=== PATIENT | male | born 1955 | race American Indian/Alaskan Native ===

== ENCOUNTER 2018-02-17 15:00 | Emergency (ER) | payer OTHER ==
[2018-02-17 15:06] VITALS: BP 146/87; PULSE 68; RESP 20; TEMP 98.4; O2SAT 98
--- NOTE | 2018-02-17 16:57 | RAD ---
Date of service: 02/17/2018 PROCEDURE: Left Foot Radiographs. HISTORY: foot injury, pain to the 2nd and 3rd MTP and toes COMPARISON: None. FINDINGS: BONES: No acute fracture or destructive bony lesion identified. Numerous accessory ossicles are somewhat unusual but not rare associated with the 2nd through 5th metatarsophalangeal joints at 3rd plantar regions. JOINTS: Moderate hallux valgus deformity. Degenerative changes are moderate to severe at the 1st metatarsophalangeal joint enter moderate but diffuse throughout the midfoot and hindfoot joints. SOFT TISSUES: Normal. OTHER FINDINGS: None. IMPRESSION: No acute fracture, subluxation or dislocation left foot. Degenerative changes are identified as discussed above.
--- NOTE | 2018-02-17 17:00 | RAD ---
Date of service: 02/17/2018 PROCEDURE: Radiographs of the right tibia and fibula. HISTORY: injury pain, to the mid calf COMPARISON: None available TECHNIQUE: Frontal and lateral views obtained. FINDINGS: BONES: No acute fracture or destructive bony lesion identified. JOINT SPACES: Unremarkable. OTHER FINDINGS: None. IMPRESSION: Unremarkable radiographs of the right tibia and fibula. If symptoms persist or worsen follow-up CT or MRI is recommended.
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
== END 2018-02-17 17:29 | disposition home or self-care (01) ==
LOC: C.ER 15:00
DX: S90.32XA Contusion of left foot, initial encounter (principal); S80.11XA Contusion of right lower leg, initial encounter; V09.20XA Pedestrian injured in traffic accident involving unspecified motor vehicles, initial encounter

== ENCOUNTER 2018-06-14 10:03 | Emergency (ER) | payer BC ==
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
--- NOTE | 2018-06-14 12:26 | C.PDOC ---
History Of Present Illness 62 year old male presents to the ED for evaluation of throat discomfort. Patient states he felt like something was stuck in his throat after he ate a sandwich yesterday. He was eventually able to swallow the food. While eating breakfast today, patient experienced the same again and was eventually able to swallow again. Patient has history of laryngeal cyst removal in 2009 at [facility]. He denies fever, chills, runny nose, cough, shortness of breath. Time Seen by Provider: 06/14/18 10:36 Chief Complaint (Nursing): ENT Problem History Per: Patient History/Exam Limitations: None Onset/Duration Of Symptoms: Hrs Current Symptoms Are (Timing): Better Past Medical History Reviewed: Historical Data, Nursing Documentation, Vital Signs Vital Signs: Last Vital Signs Temp 97.8 F 06/14/18 10:14 Pulse 70 06/14/18 10:14 Resp 20 06/14/18 10:25 BP 150/94 H 06/14/18 10:14 Pulse Ox 96 06/14/18 10:14 - Medical History PMH: No Chronic Diseases Surgical History: No Surg Hx Family History: States: Unknown Family Hx - Social History Hx Alcohol Use: No Hx Substance Use: No - Immunization History Hx Tetanus Toxoid Vaccination: No Hx Influenza Vaccination: No Hx Pneumococcal Vaccination: No Review Of Systems Constitutional: Negative for: Fever, Chills ENT: Positive for: Other (possible foreign body ). Negative for: Nose Discharge, Nose Congestion Respiratory: Negative for: Cough, Shortness of Breath Physical Exam - Physical Exam Appears: Non-toxic, No Acute Distress Skin: Normal Color, Warm, Dry Head: Atraumatic, Normacephalic Eye(s): bilateral: Normal Inspection Oral Mucosa: Moist Throat: Normal, No Erythema, No Exudate, No Drooling, Other (no visible foreign body ) Neck: Supple Chest: Symmetrical, No Deformity, No Tenderness Cardiovascular: Rhythm Regular, No Murmur Respiratory: Normal Breath Sounds, No Rales, No Rhonchi, No Wheezing Extremity: Normal ROM, Capillary Refill (less than 2 seconds ) Neurological/Psych: Oriented x3, Normal Speech, Normal Cognition ED Course And Treatment O2 Sat by Pulse Oximetry: 96 (on RA) Pulse Ox Interpretation: Normal Progress Note: CXR and neck soft tissue XR ordered and reviewed. Disposition Counseled Patient/Family Regarding: Studies Performed, Diagnosis, Need For Followup, Rx Given - Disposition Referrals: Johnny Huertas MD [Staff Provider] - [facility] [Outside] Disposition: HOME/ ROUTINE Disposition Time: 12:30 Condition: STABLE Additional Instructions: FOLLOW UP WITH YOUR DOCTOR IN 1-2 DAYS IF SYMPTOMS PERSIST FOLLOW UP WITH GI USE MEDICATIONS NEEDED RETURN TO ER IF SYMPTOMS WORSEN Prescriptions: Benzocaine/Menthol [Cepacol Sore Throat Lozenge] 1 each MM Q2 PRN #30 lozenge PRN Reason: throat pain Lidocaine 2% Viscous 20 ml PO Q6 PRN #1 bottle PRN Reason: throat pain Forms: [employer] (Macedonian), Work Excuse Print Language: TURKISH - Clinical Impression Clinical Impression: Throat pain, Pill esophagitis - Scribe Statement The provider has reviewed the documentation as recorded by the Scribe (Marbella Briceño) Provider Attestation: All medical record entries made by the Scribe were at my direction and personally dictated by me. I have reviewed the chart and agree that the record accurately reflects my personal performance of the history, physical exam, medical decision making, and the department course for this patient. I have also personally directed, reviewed, and agree with the discharge instructions and disposition.
[2018-06-14 12:36] VITALS: BP 152/90; PULSE 58; RESP 18; TEMP 98.3
--- NOTE | 2018-06-14 13:50 | RAD ---
Date of service: 06/14/2018 PROCEDURE: Neck soft tissues INDICATION: Throat pain, evaluate for radiopaque foreign body COMPARISON: None. FINDINGS: AP and lateral views of the neck were obtained utilizing soft tissue technique. The prevertebral soft tissues are not widened. The soft tissues are unremarkable including the epiglottis, aryepiglottic folds and subglottic airway. No evidence for radiopaque foreign body. The visualized bones are within normal limits for the patient's age. IMPRESSION: No evidence for radiopaque foreign body in the soft tissues of the neck. No prevertebral soft tissue thickening.
[2018-06-14 16:11] VITALS: O2SAT 96
== END 2018-06-14 12:37 | disposition home or self-care (01) ==
LOC: C.ER 10:03
DX: K20.8 Other esophagitis (principal); R07.0 Pain in throat